=== PATIENT | female | born 1990 | race Caucasian/White ===

== ENCOUNTER 2020-07-29 11:51 | Inpatient (IN) | payer OTHER ==
[~2020-07-29 11:51] MED LIST: ATIVAN0.5 MG PO; ONDANSETRON ODT4 MG PO; PHENERGAN IM25 MG/ML PR; PHENERGAN25 MG PR; ZOFRAN ODT 4 MG4 MG GT
[2020-07-29 12:55] LABS: HEMOGLOBIN 14.3 gm/dl (12.3-15.3); RED BLOOD COUNT 4.38 M/UL (4.00-5.10); WHITE BLOOD COUNT 7.6 K/UL (4.5-11.0)
[2020-07-29] MEDS ORDERED: BUTALB-ACETAMI1 EAC1 PO (14:18)
[2020-07-29] MEDS ORDERED: PHENERGAN 12.12.5 M1 PO (14:18)
[2020-07-29] MEDS ORDERED: TYLENOL325 MG PO (14:19)
[2020-07-29] MEDS ORDERED: PRENATAL TABLE1 EAC1 PO (14:20)
[2020-07-29] MEDS ORDERED: VITAMIN B-625 MG PO (14:20)
[2020-07-30 05:43] LABS: HEMOGLOBIN 15.2 gm/dl (12.3-15.3)
[2020-07-31] MEDS ORDERED: PHENERGAN 12.12.5 M1 PO (14:45)
[2020-08-01] MEDS ORDERED: IBUPROFEN600 MG PO (12:23)
[2020-08-01] MEDS ORDERED: LORTAB 5-325 M1 EACH PO (12:23)
[2020-08-01] MEDS ORDERED: DOCUSATE SODIU100 MG PO (12:23)
== END 2020-08-01 15:57 | disposition home or self-care (01) | DRG 787 ==
LOC: GENOP 11:51 → OB 12:17
PROVIDERS: Obstetrics & Gynecology; ADMIT Obstetrics & Gynecology
PROC: 0DNU0ZZ Release Omentum, Open Approach (ICD-10-PCS; 2020-07-29)
PROC: 3E0234Z Introduction of Serum, Toxoid and Vaccine into Muscle, Percutaneous Approach (ICD-10-PCS; 2020-07-29)
PROC: 10D00Z1 Extraction of Products of Conception, Low, Open Approach (ICD-10-PCS; principal; 2020-07-29 15:34)
PROC: 3E02340 Introduction of Influenza Vaccine into Muscle, Percutaneous Approach (ICD-10-PCS; 2020-08-01)
DX: O24.420 Gestational diabetes mellitus in childbirth, diet controlled (principal); O41.03X0 Oligohydramnios, third trimester, not applicable or unspecified; Z20.828 Contact with and (suspected) exposure to other viral communicable diseases; O34.211 Maternal care for low transverse scar from previous cesarean delivery; Z3A.37 37 weeks gestation of pregnancy; Z37.0 Single live birth; N85.8 Other specified noninflammatory disorders of uterus; K59.09 Other constipation; O75.89 Other specified complications of labor and delivery; G43.909 Migraine, unspecified, not intractable, without status migrainosus; Z90.49 Acquired absence of other specified parts of digestive tract; O99.62 Diseases of the digestive system complicating childbirth; K66.0 Peritoneal adhesions (postprocedural) (postinfection); Z23 Encounter for immunization
CPT/HCPCS: 36415; 81001; 82800; 82962; 85014; 85018; 85025; 87635; 90686; 90715; 96372; C9113; G0008; J0690; J1885; J2250; J2274; J2405; J2590; J2704; J3010

== ENCOUNTER 2020-08-19 06:46 | Emergency (ER) | payer OTHER ==
[~2020-08-19 06:46] MED LIST changes: +BUTALB-ACETAMI1 EAC1 PO; +DOCUSATE SODIU100 MG PO; +IBUPROFEN600 MG PO; +LORTAB 5-325 M1 EACH PO; +PHENERGAN 12.12.5 M1 PO; +PRENATAL TABLE1 EAC1 PO; +TYLENOL325 MG PO; +VITAMIN B-625 MG PO
[2020-08-19 07:44] LABS: HEMOGLOBIN 16.5 gm/dl (12.3-15.3); RED BLOOD COUNT 5.13 M/UL (4.00-5.10); WHITE BLOOD COUNT 11.2 K/UL (4.5-11.0)
[2020-08-19 08:11] LABS: BUN/CREATININE RATIO 16 (0-10)
[2020-08-19] MEDS ORDERED: PHENERGAN 12.12.5 MG PR (11:55)
== END 2020-08-19 12:00 | disposition home or self-care (01) ==
LOC: ER1 06:46
PROVIDERS: Family Medicine
DX: R11.2 Nausea with vomiting, unspecified (principal); E87.6 Hypokalemia; R10.84 Generalized abdominal pain
CPT/HCPCS: 71045; 80053; 81001; 82009; 82550; 82553; 83690; 83874; 84484; 85025; 93005; 96374; 96375; 96376; 99284; J1885; J2550; J7030

== ENCOUNTER 2020-08-21 20:34 | Emergency (ER) | payer OTHER ==
[~2020-08-21 20:34] MED LIST changes: +PHENERGAN 12.12.5 MG PR
[2020-08-22] MEDS ORDERED: PROMETHAZINE12.5 M1 PO (16:01)
[2020-08-22] MEDS ORDERED: BUTALB-ACETAMI1 EAC1 PO (16:02)
== END 2020-08-21 22:20 | disposition left against medical advice (07) ==
LOC: ER1 20:34
DX: R11.10 Vomiting, unspecified (principal); R53.1 Weakness; Z53.21 Procedure and treatment not carried out due to patient leaving prior to being seen by health care provider

== ENCOUNTER 2020-08-22 06:08 | Inpatient (IN) | payer OTHER ==
[~2020-08-22] VITALS: Ht 167.6 cm; Wt 82.8 kg
[2020-08-22 09:33] LABS: HEMOGLOBIN 18.1 gm/dl (12.3-15.3); RED BLOOD COUNT 5.82 M/UL (4.00-5.10); WHITE BLOOD COUNT 12.3 K/UL (4.5-11.0)
[2020-08-22 10:10] LABS: BUN/CREATININE RATIO 18 (0-10)
[2020-08-22] MEDS ORDERED: PROMETHAZINE12.5 M1 PO (16:01)
[2020-08-22] MEDS ORDERED: BUTALB-ACETAMI1 EAC1 PO (16:02)
[2020-08-23 04:50] LABS: WHITE BLOOD COUNT 10.2 K/UL (4.5-11.0)
[2020-08-23 04:55] LABS: HEMOGLOBIN 15.4 gm/dl (12.3-15.3); RED BLOOD COUNT 4.72 M/UL (4.00-5.10)
[2020-08-23 05:14] LABS: BUN/CREATININE RATIO 16 (0-10)
[2020-08-24 02:05] LABS: HEMOGLOBIN 15.6 gm/dl (12.3-15.3); RED BLOOD COUNT 4.74 M/UL (4.00-5.10); WHITE BLOOD COUNT 10.6 K/UL (4.5-11.0)
[2020-08-24 02:24] LABS: BUN/CREATININE RATIO 15 (0-10)
[2020-08-25 07:59] LABS: BUN/CREATININE RATIO 19 (0-10)
--- NOTE | 2020-08-25 18:18 | NUR ---
NOTIFIED DR. MAR OF NO GASTROLOGIST COVERAGE THIS WEEK. STATED TO CANCEL GASTRO CONSULT.
[2020-08-26 04:32] LABS: BUN/CREATININE RATIO 16 (0-10)
--- NOTE | 2020-08-28 01:22 | NUR ---
0030- NO CHANGE FROM PREVIOUS 7P NURSING ASSESSMENT.
[2020-08-28 09:27] LABS: BUN/CREATININE RATIO 8 (0-10)
[2020-08-29 03:43] LABS: HEMOGLOBIN 13.9 gm/dl (12.3-15.3); RED BLOOD COUNT 4.41 M/UL (4.00-5.10); WHITE BLOOD COUNT 9.3 K/UL (4.5-11.0)
[2020-08-29 04:03] LABS: BUN/CREATININE RATIO 7 (0-10)
[2020-08-30 05:26] LABS: BUN/CREATININE RATIO 9 (0-10)
[2020-08-30] MEDS ORDERED: PROMETHAZINE12.5 M1 PO (15:01)
[2020-08-30] MEDS ORDERED: K-TAB ER20 MEQ PO (15:11)
== END 2020-08-30 15:45 | disposition home or self-care (01) | DRG 776 ==
LOC: ER1 06:08 → CDU 14:10 → M/S 15:53
PROVIDERS: Internal Medicine; Physician Assistant; Physician Assistant Medical; ADMIT Internal Medicine
DX: O90.89 Other complications of the puerperium, not elsewhere classified (principal); E87.2 Acidosis; G43.A0 Cyclical vomiting, in migraine, not intractable; E87.6 Hypokalemia; R79.89 Other specified abnormal findings of blood chemistry; Z20.822 Contact with and (suspected) exposure to COVID-19; F41.9 Anxiety disorder, unspecified; E86.0 Dehydration; O99.345 Other mental disorders complicating the puerperium; R00.0 Tachycardia, unspecified; Z90.49 Acquired absence of other specified parts of digestive tract; Z79.899 Other long term (current) drug therapy; Z83.3 Family history of diabetes mellitus
CPT/HCPCS: 36415; 80048; 80053; 81001; 82150; 82550; 82553; 82962; 83605; 83690; 83735; 83874; 84132; 84484; 84703; 85025; 85027; 87040; 93005; 96374; 96375; 96376; 99285; C9113; G0378; J2060; J2270; J2405; J2550; J3480; J7030; U0002